=== PATIENT | male | born 1995 | race Caucasian/White ===

== ENCOUNTER → 2018-07-19 | Outpatient (CLI) | payer BC | LOC: GMAM 17:50 | PROVIDERS: ATTEND Family Medicine | DX: R53.83 Other fatigue (principal) ==

== ENCOUNTER → 2020-02-24 | Outpatient (CLI) | payer BC ==
--- NOTE | 2020-02-24 13:14 | CT ---
Study: CT Chest. Indication: SHORTNESS OF BREATH Technique: CT imaging of the chest obtained after intravenous administration of contrast. This exam was performed according to our departmental dose-optimization program, which includes automated exposure control, adjustment of the mA and/or kV according to patient size and/or use of iterative reconstruction technique. Comparison: None. Findings: Heart size normal. No pathologically enlarged lymphadenopathy. Within the anterior aspect of the right hepatic lobe is an indeterminate 14 mm low-density lesion. No consolidation, pleural effusion, or pneumothorax. Impression: Clear lungs. 14 mm low-density in right hepatic lobe lesion, which may reflect a benign hemangioma but is ultimately indeterminate. Correlation with right upper quadrant sonogram recommended. Electronically signed by: London Jacques MD 02/24/2020 1:13 PM CDT
== END ==
LOC: CT 08:02
PROVIDERS: ATTEND Family Medicine
DX: R06.02 Shortness of breath (principal); K76.9 Liver disease, unspecified

== ENCOUNTER → 2020-03-16 | Outpatient (CLI) | payer BC ==
--- NOTE | 2020-03-17 12:10 | US ---
EXAM DESCRIPTION: Liver: ULTRASOUND. CLINICAL HISTORY: LIVER DISEASE COMPARISON: CT scan of chest with contrast February 23. TECHNIQUE: Transabdominal scannin-dimensional and Doppler modes. FINDINGS: Gallbladder: normal size, shape, echogenicity; no intraluminal stones or sludge. No fluid around the gallbladder. No wall thickening. 2.1 mm Non-tender with transducer pressure. Common bile duct: caliber or point to mm within normal limits. Liver: Multiple circumscribed homogeneous echogenic masses in all lobes with no definitive color Doppler signature; the largest measures 1.9 cm diameter. Otherwise normal echogenicity. Contour liver capsule smooth where seen. No fluid around the liver. Intrahepatic biliary ducts normal caliber. Doppler hepatopedal flow portal vein. 12 millimeters. Long axis right lobe 14.9 cm. Pancreas: normal size and echogenicity. Duct not seen. Right kidney: long axis measures 10.3 cm. Volume 158.2 ml. Echogenicity normal cortical echogenicity. Normal cortical thickness. No echogenic stones; no hydronephrosis. Aorta proximal: 1.8 cm normal caliber. IMPRESSION: 1. Multiple well circumscribed, echogenic masses in the liver. These are most likely hemangiomas. No abnormal vascularity, normal caliber of the portal vein and normal hepatopedal flow, and normal caliber of the ducts. No hepatic enlargement, smooth capsule with no ascites. Consider MRI scan of the liver without and with gadolinium IV contrast for hemangioma protocol. 2. The remainder of the study is unremarkable. Electronically signed by: Cezar Carver MD 03/17/2020 12:09 PM CDT
== END ==
LOC: US 08:33
PROVIDERS: ATTEND Family Medicine
DX: K76.9 Liver disease, unspecified (principal)

== ENCOUNTER → 2020-03-23 | Outpatient (CLI) | payer BC ==
--- NOTE | 2020-03-26 08:32 | MRI ---
EXAM DESCRIPTION: Abdomen w/wo Contrast Magnetic Resonance Imaging. CLINICAL HISTORY: LIVER DISEASE UNSPECIFIED. COMPARISON: Liver ultrasound March 16. TECHNIQUE: Multiplanar MRI, multiple sequences, before and after Dotarem gadolinium IV contrast, 1 mL per 5 kg body weight. No adverse reactions. FINDINGS: In the right lobe of the liver, there are multiple circumscribed lesions which are subcapsular. The largest measures 1.3 x 1.2 cm., At the junction of the proximal 25% and second 25% of the right lobe of the liver. Minimal hyperintensity on T2-weighted sequence (coronal T2 sequence 301, image 7), and signal decreases with fat saturation (axial T2 fat saturation sequence 501, image 22..) On in-phase/out-phase images, complete signal dropout on out-phase images (axial dual FFE breath-hold sequence 601-1, image 24, and 601-2, images 24.) This is consistent with fatty content. Dynamic thrive enhancement sequences show minimal if any enhancement with no change from arterial phase (axial sequence 1301, Image 56) to 10 minute delay (axial series 1601, image 56). No diffusion restriction. No pleural effusion or dominant masses in the lung bases. Kidneys symmetric size and appearance with normal signal and normal enhancement and no mass. Adrenal glands symmetric size and signal and enhancement. Spleen is negative. Pancreas unremarkable. No ascites. Included bone, discs, and spinal soft tissues unremarkable. No obstruction of the included bowel. Mild constipation. IMPRESSION: 1. Multiple circumscribed fatty lesions in the subcapsular right lobe of the liver with the largest measuring approximately 1.3 cm in diameter. MRI parameters demonstrate this is almost completely fatty lesion. Minimal if any enhancement. Differential includes hepatic angiomyolipoma, lipomas, or hepatic adenomas. Consider follow-up liver ultrasound in 6 months interval to document stability. Electronically signed by: Cezar Carver MD 03/26/2020 8:31 AM CDT
== END ==
LOC: MRI 07:50
PROVIDERS: ATTEND Family Medicine
DX: K76.9 Liver disease, unspecified (principal)